=== PATIENT | female | born 1990 | race Asian ===

== ENCOUNTER 2019-08-09 07:20 | Day surgery (SDC) | payer OTHER ==
[~2019-08-09] VITALS: Ht 147.3 cm; Wt 55.9 kg
[~2019-08-09 07:20] MED LIST: SODIUM CHLORIDE 0.9% 1,000 ML ONE
[2019-08-09] MEDS ORDERED: SODIUM CHLORIDE 0.9% 1,000 ML IV ONE (07:30)
[2019-08-09] MEDS ORDERED: PANT40TA25 PO (10:17)
== END 2019-08-09 10:35 | disposition home or self-care (01) ==
LOC: SURGERY 07:20
PROVIDERS: ATTEND Internal Medicine Gastroenterology
DX: K21.9 Gastro-esophageal reflux disease without esophagitis (principal); K31.7 Polyp of stomach and duodenum; K29.50 Unspecified chronic gastritis without bleeding
CPT/HCPCS: 43239; 84703; 88305; 88312; 88313; C1769; J7030